=== PATIENT | male | born 1990 | race Caucasian/White ===

== ENCOUNTER 2017-09-13 14:32 | Emergency (ER) | payer MEDICAID, SELFPAY ==
[2017-09-13 14:33] VITALS: BP 154/77; PULSE 86; RESP 16; TEMP 36.5; O2SAT 98; BMI 35.2
--- NOTE | 2017-09-13 15:17 | ED.VISSUMM ---
"- ER Visit Summary Date of Service: 09/13/17 Chief Complaint: Diarrhea History of Present Illness: The patient is a 26 M presenting for evaluation secondary to diarrhea. Patient states that over the course last 2-3 days he has been feeling ill having diarrhea 3-4 episodes a day. He states it is loose and watery without any blood. He he does endorse couple episodes of nausea and vomiting. Denies any presence of fevers. No recent travel or antibiotic use. Patient feels that this could be because of the change in weather, the fact that he is changed his diet, or the fact that he is working out but states that he needs a work note for this. Physical Examination: Vital signs are within normal limits, patient is afebrile. General: Patient is well-nourished well-developed and in no acute distress. Head: Normocephalic, atraumatic Eyes: Pupils equal round and reactive bilaterally, extra occular motion intact bialterally ENT: Moist mucous membranes Neck: Supple, no lymphadenopathy, no JVD, no meningismus CVS: Heart regular rate and rhythm, no murmurs, rubs or gallops, radial pulses 2+ bilaterally Resp: Respirations nondistressed, lung sounds clear bilaterally Abdomen: Soft, nontender, nondistended, no palpable masses, normal bowel sounds Back: Nontender Extremities: Nontender, atraumatic, active full range of motion, no peripheral edema Skin: warm, no rashes, no petechia Neuro: Alert and oriented x 4, CN 2-12 intact, no lateralizing neurological defecits Psyc: Normal affect Test Results: None indicated Emergency Department Course and Treatment: Patient presented with mild symptoms of enteritis. He appears well-hydrated is normal vital signs I do not believe the workup is necessary. Patient was recommended on usage of Imodium. He will follow-up with his primary care doctor as needed. Disposition: Discharge Impression: 1. Enteritis This note was generated with [employer] dictation software. It may contain incorrect words, spelling, and punctuation that were not noted in review of the chart prior to signing ED Disposition - Plan for ED Patient: Disposition: Home or Assisted Living Chief Complaint: General Illness Diagnosis: Enteritis Instructions: ED Diarrhea Viral Additional Instructions: Followup with your doctor as needed"
--- NOTE | 2017-09-13 15:20 | ED.DCSUM_ITS ---
- ER Visit Summary Date of Service: 09/13/17 Chief Complaint: Diarrhea History of Present Illness: The patient is a 26 M presenting for evaluation secondary to diarrhea. Patient states that over the course last 2-3 days he has been feeling ill having diarrhea 3-4 episodes a day. He states it is loose and watery without any blood. He he does endorse couple episodes of nausea and vomiting. Denies any presence of fevers. No recent travel or antibiotic use. Patient feels that this could be because of the change in weather, the fact that he is changed his diet, or the fact that he is working out but states that he needs a work note for this. Physical Examination: Vital signs are within normal limits, patient is afebrile. General: Patient is well-nourished well-developed and in no acute distress. Head: Normocephalic, atraumatic Eyes: Pupils equal round and reactive bilaterally, extra occular motion intact bialterally ENT: Moist mucous membranes Neck: Supple, no lymphadenopathy, no JVD, no meningismus CVS: Heart regular rate and rhythm, no murmurs, rubs or gallops, radial pulses 2 + bilaterally Resp: Respirations nondistressed, lung sounds clear bilaterally Abdomen: Soft, nontender, nondistended, no palpable masses, normal bowel sounds Back: Nontender Extremities: Nontender, atraumatic, active full range of motion, no peripheral edema Skin: warm, no rashes, no petechia Neuro: Alert and oriented x 4, CN 2-12 intact, no lateralizing neurological defecits Psyc: Normal affect Test Results: None indicated Emergency Department Course and Treatment: Patient presented with mild symptoms of enteritis. He appears well-hydrated is normal vital signs I do not believe the workup is necessary. Patient was recommended on usage of Imodium. He will follow-up with his primary care doctor as needed. Disposition: Discharge Impression: 1. Enteritis This note was generated with [employer] dictation software. It may contain incorrect words, spelling, and punctuation that were not noted in review of the chart prior to signing ED Disposition - Plan for ED Patient: Disposition: Home or Assisted Living Chief Complaint: General Illness Diagnosis: Enteritis Instructions: ED Diarrhea Viral Additional Instructions: Followup with your doctor as needed
[2017-09-13 15:38] VITALS: RESP 14
[2017-09-13] MEDS: Loperamide 2 MG Capsule 4 MG PO (15:38)
== END 2017-09-13 15:39 | disposition home or self-care (01) ==
PROVIDERS: Emergency Provider Emergency Medicine
DX: K52.9 Noninfective gastroenteritis and colitis, unspecified (principal); Z72.0 Tobacco use
CPT/HCPCS: 99283